=== PATIENT | female | born 1960 | race Caucasian/White ===

== ENCOUNTER 2021-03-14 13:49 | Emergency (ER) | payer OTHER, SELFPAY ==
--- NOTE | 2021-03-14 13:57 | ED.SKABFB ---
HPI - Skin/Abscess/Foreign Bdy General Chief complaint: Skin/Abscess/Foreign Body Stated complaint: RASH Source: patient and RN notes reviewed Mode of arrival: ambulatory Limitations: no limitations History of Present Illness HPI narrative: 61-year-old female presents to the [facility] with complaints of a rash to her left buttock wrapping around to her hip. Patient states that she had pain and burning that started 2 days ago. Noticed the rash today still painful and burning. No treatment prior to arrival. No other complaints at this time Related Data Allergies Allergy/AdvReac Type Severity Reaction Status Date / Time No Known Allergies Allergy Verified 03/14/21 13:59 Review of Systems Review of Systems: All systems reviewed & are unremarkable except as noted in HPI and below Constitutional: Constitutional: Reports no additional constitutional complaints, Denies chills and Denies fever(s) Eyes: Eyes: Reports no additional eye complaints ENT: Reports system reviewed and no additional complaints, except as documented Cardiovascular: Cardiovascular: Reports no additional cardiovascular complaints Respiratory: Respiratory: Reports no additional respiratory complaints Gastrointestinal: Gastrointestinal: Reports no additional gastrointestinal complaints Musculoskeletal: Musculoskeletal: Reports no additional musculoskeletal complaints Integumentary/Breasts: Skin/Breast: Reports as per HPI and Reports rash Neurologic: Reports system reviewed and no additional complaints, except as documented Psychiatric: Psychiatric: Reports no additional psychiatric complaints Allergic/Immunologic: Allergic/Immunologic: Reports no additional allergic/immunologic complaints [facility] Past Medical History Medical History (Updated 03/14/21 @ 14:11 by Rachel Doran) No significant medical problems Surgical History Surgical History (Updated 03/14/21 @ 14:11 by Rachel Doran) No significant past surgical history Comments At the time of my signature, I reviewed and agree with the nursing past medical, surgical, social, and family history. There is no relevant family history pertinent to the patient complaint. Exam Const: General: healthy appearing, no acute distress and alert Nutritional Appearance: well nourished Orientation/consciousness: patient oriented x3 Limitations: no limitations HENMT: Head: normal to inspection Eyes: Pupils: Equal, round and reactive pupils present Neck: Neck: normal visual inspection, no lymphadenopathy and no meningeal signs Chest: Chest palpation & inspection: normal inspection of the chest Resp: Effort & Inspection: normal respiratory effort Auscultation: clear to auscultation bilaterally Cardio: Rate: regular rate Rhythm: regular rhythm GI: GI Palp: Yes Soft to palpation and No Tenderness to palpation present (GI) : General: Yes no CVA tenderness Back/Spine/Pelvis: Back: no CVA tenderness Skin: General skin exam: normal color Rashes: rashes noted buttock arrangement grouped and linear Other: 3 areas of herpetic lesions left buttock, hip Course Course Emergency Course: Discharge instructions reviewed with patient, as well as provided in writing per nursing staff. The instructions also include specific and strict return/GO TO THE ER as well as f/u information. All questions have been answered, and the patient deny any further questions with discharge and discharge plan. Vital Signs Vital signs: Vital Signs Temperature 98.7 F 03/14/21 13:59 Pulse Rate 101 H 03/14/21 13:59 Respiratory Rate 16 03/14/21 13:59 Blood Pressure 126/71 03/14/21 13:59 Pulse Oximetry 100 03/14/21 13:59 Temperature 98.7 F 03/14/21 13:59 Pulse Rate 101 H 03/14/21 13:59 Respiratory Rate 16 03/14/21 13:59 Blood Pressure 126/71 03/14/21 13:59 Pulse Oximetry 100 03/14/21 13:59 MDM - Skin/Abscess/Foreign Bdy Differential Diagnosis Differential diagnosis: Likely a
[2021-03-14 13:59] VITALS: BP 126/71; PULSE 101; RESP 16; TEMP 37.1; O2SAT 100
== END 2021-03-14 14:22 | disposition home or self-care (01) ==
PROVIDERS: Emergency Provider Nurse Practitioner; PCP Physician Assistant Medical
DX: B02.9 Zoster without complications (principal)
CPT/HCPCS: 99213; G0463

== ENCOUNTER 2021-04-16 16:00 | Emergency (ER) | payer OTHER, SELFPAY ==
--- NOTE | 2021-04-16 16:08 | ED.ANXIETY ---
HPI - Anxiety General Chief Complaint: Anxiety Stated Complaint: jittery/anxious Time Seen by Provider: 04/16/21 16:25 Source: patient and family Mode of arrival: ambulatory Limitations: no limitations History of Present Illness HPI narrative: Martha Munguia 61-year-old female who [facility] complaining of triggering in her legs and having problems concentrating and somewhat anxious. She had shingles about a month ago was given valacyclovir and states that she believes her leg hearing started after this med; her mother 2 weeks ago unexpectedly. She denies being depressed although she is tearful when she tries to describe its going on. She is having problems sleeping at night, and seems Related Data Allergies Allergy/AdvReac Type Severity Reaction Status Date / Time No Known Allergies Allergy Verified 04/16/21 16:10 Review of Systems Review of Systems: CONSTITUTIONAL: Denies fever, chills, sweats. EYES: Denies visual changes, redness, discharge. ENT: Denies rhinorrhea, congestion, sore throat, otalgia. CARDIOVASCULAR: Denies chest pain, palpitations, edema. RESPIRATORY: Denies dyspnea, wheezing, cough GASTROINTESTINAL: Denies abdominal pain, nausea, vomiting, diarrhea. GENITOURINARY: Denies dysuria, hematuria, abnormal discharge SKIN: Denies rash or itching. NEUROLOGIC: Denies numbness, or focal weakness. PSYCHIATRIC: Denies anxiety or depression. Legs feel jittery, anxiety PMFSH Past Medical History Medical History No significant medical problems Surgical History Surgical History No significant past surgical history Family History Family History Grandparent Carcinoma of colon Social History Social History Smoking status: Never smoker Alcohol intake: never Comments At time of signature, I agree with nursing past medical, surgical, social and family history. There is no relevant family history pertinent to the presenting complaint. Exam Narrative: GENERAL: This is a well-nourished, well-developed patient, in mild distress. HEAD: normocephalic, atraumatic. EYES: Sclera clear/white. Vision is grossly intact. EARS: External ears normal, . Hearing grossly intact. NOSE: External nose normal without nasal discharge, nares without redness, no rhinorrhea. THROAT: Mucous membranes moist, NECK: Neck supple, CARDIOVASCULAR: Regular rate and rhythm without murmurs, gallops, or rubs. RESPIRATORY: Clear to auscultation. Breath sounds equal bilaterally. No wheezes, rales, or rhonchi. GASTROINTESTINAL: Abdomen soft, SKIN: warm, intact with no suspicious lesions or rash, good texture and turgor. NEURO: awake, alert, and oriented to person, place and time. There were no obvious focal neurologic abnormalities. Steady gait EXTREMITIES: Normal range of motion. BACK: Nontender without deformity Course Course Emergency Course: [facility] complaining of jitteriness of legs and anxiety. Essentially has normal physical exam. Patient has been for almost 1/2 an hour about she is concerning her legs and of her mother and managing short-term her difficulty sleeping and anxiety although she denies that she is has a depression and believes that although the was sudden that her mother is in a better place because of her veronica in [place]. Discussed using melatonin at bedtime and gave patient baclofen 5 mg to be taken twice daily if her legs feel jittery and Vistaril 25 mg for anxiety patient has full strength of all extremities and is looks neurologically intact. Vital Signs Vital signs: Vital Signs Temperature 98.1 F 04/16/21 16:11 Pulse Rate 102 H 04/16/21 16:11 Respiratory Rate 16 04/16/21 16:11 Blood Pressure 140/74 04/16/21 16:11 Pulse Oximetry 100
[2021-04-16 16:11] VITALS: BP 140/74; PULSE 102; RESP 16; TEMP 36.7; O2SAT 100
== END 2021-04-16 17:15 | disposition home or self-care (01) ==
PROVIDERS: Emergency Provider Nurse Practitioner; PCP Physician Assistant Medical
DX: F41.9 Anxiety disorder, unspecified (principal); M62.838 Other muscle spasm
CPT/HCPCS: 99213; G0463